=== PATIENT | female | born 1940 | race American Indian/Alaskan Native ===

== ENCOUNTER 2020-03-05 11:10 | Emergency (ER) | payer BC ==
[2020-03-05] MEDS ORDERED: SODIUM CHLORIDE 0.9% 1000 ML 1,000 ML IV ONE (11:32)
[2020-03-05] MEDS ORDERED: ONDANSETRON 4 MG/2 ML INJ IV ONE (11:33)
--- NOTE | 2020-03-05 11:39 | Emergency Department Report ---
ED General Adult HPI - General Stated complaint: WEAKNESS/LOST OF APPETITE Time Seen by Provider: 03/05/20 11:26 Source: patient, EMS - History of Present Illness Initial comments: Ms. Lee is a 79 years old female with history of multiple sclerosis, uses wheelchair. Patient brought to the emergency room via EMS from home for evaluation of generalized weakness and loss of appetite for the last 5 days. Patient stated that she saw her primary care physician twice last week and she was given Tessalon Perle that make her even more sick. Patient denied any fever or chills. She denied any cough or shortness of breath. Patient denied any chest pain, shortness of breath, abdominal pain or diarrhea. -: days(s) (5) - Related Data Previous Rx's Medication Instructions Recorded Last Taken Type Ondansetron [Zofran Odt] 4 mg PO Q8HR PRN #14 tab.rapdis 03/05/20 Unknown Rx levoFLOXacin [Levaquin TAB] 500 mg PO QDAY #7 tablet 03/05/20 Unknown Rx Allergies Allergy/AdvReac Type Severity Reaction Status Date / Time aspirin Allergy Unknown Verified 03/05/20 14:41 codeine Allergy Unknown Verified 03/05/20 14:41 NSAIDS (Non-Steroidal Allergy Unknown Verified 03/05/20 14:41 Anti-Inflamma Penicillins Allergy Unknown Verified 03/05/20 14:41 ED Review of Systems ROS: Stated complaint: WEAKNESS/LOST OF APPETITE Other details as noted in HPI Comment: All other systems reviewed and negative Constitutional: denies: chills, fever ENT: congestion Respiratory: denies: cough, shortness of breath Cardiovascular: palpitations. denies: chest pain Gastrointestinal: nausea. denies: abdominal pain, vomiting, diarrhea, constipation, hematemesis, melena, hematochezia Musculoskeletal: denies: back pain Neurological: weakness. denies: headache, numbness, paresthesias, confusion, abnormal gait ED Past Medical Hx - Medications Home Medications: Home Medications Medication Instructions Recorded Confirmed Last Taken Type Ondansetron [Zofran Odt] 4 mg PO Q8HR PRN #14 tab.rapdis 03/05/20 Unknown Rx levoFLOXacin [Levaquin TAB] 500 mg PO QDAY #7 tablet 03/05/20 Unknown Rx ED Physical Exam - General General appearance: alert, in no apparent distress - Head Head exam: Present: atraumatic, normocephalic, normal inspection - Eye Eye exam: Present: normal appearance - ENT ENT exam: Present: mucous membranes dry - Neck Neck exam: Present: normal inspection, full ROM. Absent: tenderness, meningismus - Respiratory Respiratory exam: Present: normal lung sounds bilaterally - Cardiovascular Cardiovascular Exam: Present: tachycardia - GI/Abdominal GI/Abdominal exam: Present: soft, normal bowel sounds. Absent: distended, tenderness, guarding, rebound, rigid, mass, bruit, pulsatile mass, hernia - Extremities Exam Extremities exam: Present: normal inspection, full ROM, normal capillary refill - Back Exam Back exam: Absent: CVA tenderness (R), CVA tenderness (L) - Neurological Exam Neurological exam: Present: alert, oriented X3, CN II-XII intact, motor sensory deficit (Chronic lower extremity weakness, wheelchair ridden.) - Psychiatric Psychiatric exam: Present: normal mood - Skin Skin exam: Present: warm, intact, normal color ED Course Vital Signs 03/05/20 03/05/20 03/05/20 11:35 11:45 11:47 Temperature 99.0 F Pulse Rate 100 H Respiratory 15 21 18 Rate Blood Pressure Blood Pressure 112/76 [Right] O2 Sat by Pulse 96 93 97 Oximetry 03/05/20 03/05/20 03/05/20 12:01 12:15 12:31 Temperature Pulse Rate 94 H 91 H 100 H Respiratory 14 22 20 Rate Blood Pressure Blood Pressure [Right] O2 Sat by Pulse 94 96 100 Oximetry 03/05/20 03/05/20 03/05/20 12:45 13:01 13:15 Temperature Pulse Rate 95 H 90 95 H Respiratory 16 20 17 Rate Blood Pressure Blood Pressure [Right] O2 Sat by Pulse 95 96 96 Oximetry 03/05/20 03/05/20 03/05/20 13:31 13:45 14:01 Temperature Pulse Rate 97 H 96 H 94 H Respiratory 21 20 18 Rate Blood Pressure Blood Pressure [Right] O2 Sat by Pulse 97 97 95 Oximetry 03/05/20 03/05/20 03/05/20 14:15 14:31 14:45 Temperature Pulse Rate 112 H 98 H 95 H Respiratory 22 16 22 Rate Blood Pressure Blood Pressure [Right] O2 Sat by Pulse 98 97 95 Oximetry 03/05/20 03/05/20 03/05/20 15:01 15:15 15:31 Temperature Pulse Rate 92 H 95 H 97 H Respiratory 19 17 11 L Rate Blood Pressure Blood Pressure [Right] O2 Sat by Pulse 97 97 97 Oximetry 03/05/20 03/05/20 03/05/20 15:45 16:01 16:15 Temperature Pulse Rate 96 H 100 H 100 H Respiratory 21 13 19 Rate Blood Pressure Blood Pressure [Right] O2 Sat by Pulse 96 96 95 Oximetry 03/05/20 03/05/20 03/05/20 16:31 16:45 17:01 Temperature Pulse Rate 95 H 98 H 90 Respiratory 17 17 17 Rate Blood Pressure Blood Pressure [Right] O2 Sat by Pulse 96 96 96 Oximetry 03/05/20 03/05/20 03/05/20 17:15 17:31 17:45 Temperature Pulse Rate 102 H 100 H 100 H Respiratory 19 17 18 Rate Blood Pressure Blood Pressure [Right] O2 Sat by Pulse 96 97 96 Oximetry 03/05/20 03/05/20 03/05/20 18:01 18:15 18:31 Temperature Pulse Rate 97 H 97 H 92 H Respiratory 16 18 18 Rate Blood Pressure Blood Pressure [Right] O2 Sat by Pulse 97 97 96 Oximetry 03/05/20 03/05/20 03/05/20 18:41 18:45 22:35 Temperature 102.1 F H Pulse Rate 96 H 86 Respiratory 20 16 Rate Blood Pressure 111/65 Blood Pressure 118/76 [Right] O2 Sat by Pulse 97 97 Oximetry ED Medical Decision Making - Lab Data Result diagrams: 03/05/20 12:17 03/05/20 12:17 - EKG Data -: EKG Interpreted by Ms EKG shows normal: sinus rhythm Rate: normal - EKG Data Interpretation: no acute changes - Radiology Data Radiology results: report reviewed - Medical Decision Making Ms. Lee is a 79 years old female with history of multiple sclerosis, uses wheelchair. Patient brought to the emergency room via EMS from home for evaluation of generalized weakness and loss of appetite for the last 5 days. Patient stated that she saw her primary care physician twice last week and she was given Tessalon Perle that make her even more sick. Patient denied any fever or chills. She denied any cough or shortness of breath. Patient denied any chest pain, shortness of breath, abdominal pain or diarrhea. Patient remained stable in the emergency room with a stable vital sign. Patient received normal saline, Zofran. Labs reviewed and showed UTI patient received Levaquin 500 mg IV. Patient stated that she is feeling much better. Patient discharged home with prescription for Levaquin and Zofran and advised to follow- up with her primary doctor in the next 2 to 3 days and to return to the ER if she develop any new symptoms. Critical care attestation.: If time is entered above; I have spent that time in minutes in the direct care of this critically ill patient, excluding procedure time. ED Disposition Clinical Impression: Generalized weakness, UTI (urinary tract infection) Disposition: TO HOME OR SELFCARE Is pt being admited?: No Condition: Stable Instructions: Urinary Tract Infection in Women (ED), Weakness (ED) Prescriptions: levoFLOXacin [Levaquin TAB] 500 mg PO QDAY #7 tablet Ondansetron [Zofran Odt] 4 mg PO Q8HR PRN #14 tab.rapdis PRN Reason: Nausea And Vomiting Referrals: PRIMARY CARE, [Primary Care Provider] - 3-5 Days
--- NOTE | 2020-03-05 12:04 | XRay Report ---
CHEST 1 VIEW INDICATION / CLINICAL INFORMATION: Dyspnea. COMPARISON: None available. FINDINGS: SUPPORT DEVICES: None. HEART / MEDIASTINUM: No significant abnormality. LUNGS / PLEURA: No significant pulmonary or pleural abnormality. No pneumothorax. ADDITIONAL FINDINGS: No significant additional findings. IMPRESSION: No acute pulmonary or pleural abnormality Signer Name: Saravanan Main MD FACR Signed: 03/05/2020 11:59 AM Workstation Name: [id number]
[2020-03-05 13:19] LABS: Basophils % (Auto) 0.1 % (0.0-1.8); Hemoglobin 12.2 gm/dl (10.1-14.3); Lymphocytes # (Auto) 0.8 K/mm3 (1.2-5.4); Lymphocytes % (Auto) 14.7 % (13.4-35.0); Mean Corpuscular HGB Conc 35 % (30-34); Mean Corpuscular Volume 91 fl (79-97); Monocytes # (Auto) 0.3 K/mm3 (0.0-0.8); Monocytes % (Auto) 5.1 % (0.0-7.3); Platelet Count 196 K/mm3 (140-440); Red Blood Count 3.84 M/mm3 (3.65-5.03)
[2020-03-05 13:33] LABS: INR 0.93 (0.87-1.13)
[2020-03-05 13:34] LABS: Partial Thromboplastin Time 35.5 Sec. (24.2-36.6)
[2020-03-05 13:45] LABS: BUN/Creatinine Ratio 18; Blood Urea Nitrogen 14 mg/dL (7-17); Calcium 8.2 mg/dL (8.4-10.2); Hemolysis Index 18
[2020-03-05 14:26] LABS: Alanine Aminotransferase 15 units/L (7-56); Albumin 3.5 g/dL (3.9-5)
[2020-03-05 14:34] LABS: Bilirubin,Direct < 0.2 mg/dL (0-0.2)
[2020-03-05 16:04] LABS: Bacteria,Urine 3+ /HPF (Negative); Bilirubin,Urine NEG (Negative); Blood,Urine SM (Negative); Color,Urine Amber (Yellow); Mucus,Urine 3+ /HPF
[2020-03-05 16:07] LABS: WBC,Urine > 182.0 /HPF (0.0-6.0)
[2020-03-05] MEDS ORDERED: ACETAMINOPHEN 500 MG TAB ONE (18:35)
[2020-03-05] MEDS ORDERED: ACETAMINOPHEN 500 MG TAB PO ONE (18:41)
[2020-03-05 22:51] VITALS: BP 118/76
== END 2020-03-05 22:57 | disposition home or self-care (01) ==
LOC: ED 11:10
DX: N39.0 Urinary tract infection, site not specified (principal); R53.1 Weakness; Z79.2 Long term (current) use of antibiotics; Z79.899 Other long term (current) drug therapy; Z88.0 Allergy status to penicillin; Z88.6 Allergy status to analgesic agent; Z88.8 Allergy status to other drugs, medicaments and biological substances
CPT/HCPCS: 36415; 71045; 80048; 80076; 81001; 82140; 83735; 83880; 84484; 85025; 85610; 85730; 87040; 93005; 96361; 96365; 96375; 99285; J1956; J2405; J7030